=== PATIENT | female | born 1950 | race Caucasian/White ===

== ENCOUNTER 2017-02-05 04:58 | Day surgery (SDC) | payer OTHER ==
[~2017-02-05 04:58] MED LIST: ASAB PO; CITRACAL PO; FISH-EPA1000 MG PO; LEVOTHYROXIN100 MCG PO; MOBIC7.5 PO; PRIN20 PO; TRANDAT100 PO; ZOCOR80 MG PO
== END 2017-02-05 23:59 | disposition home or self-care (01) ==
LOC: SDC 04:58
PROVIDERS: Orthopaedic Surgery Orthopaedic Surgery of the Spine
PROC: 3E0S33Z Introduction of Anti-inflammatory into Epidural Space, Percutaneous Approach (ICD-10-PCS; principal; 2017-02-05 07:30)
DX: M54.16 Radiculopathy, lumbar region (principal); I10 Essential (primary) hypertension; Z88.8 Allergy status to other drugs, medicaments and biological substances; E78.00 Pure hypercholesterolemia, unspecified; M19.90 Unspecified osteoarthritis, unspecified site; E03.9 Hypothyroidism, unspecified; Z98.41 Cataract extraction status, right eye; Z98.42 Cataract extraction status, left eye
CPT/HCPCS: J2250; J2405; J2550; J3010; Q9967